=== PATIENT | male | born 1985 | race African-American/Black ===

== ENCOUNTER 2020-10-26 22:59 | Emergency (ER) | payer MEDICAID ==
[~2020-10-26] VITALS: Ht 177.8 cm; Wt 86.0 kg
[2020-10-26 23:25] VITALS: BP 127/80
== END 2020-10-27 00:14 | disposition home or self-care (01) ==
LOC: ER 22:59
DX: L03.115 Cellulitis of right lower limb (principal); L02.415 Cutaneous abscess of right lower limb
CPT/HCPCS: 87070; 87186; 99283

== ENCOUNTER 2021-08-22 23:05 | Emergency (ER) | payer MEDICAID ==
[~2021-08-22] VITALS: Ht 175.3 cm; Wt 89.0 kg
[2021-08-23] MEDS ORDERED: ACETAMINOPHEN 500MG TABLET PO STA (01:49)
[2021-08-23] MEDS ORDERED: METOCLOPRAMIDE HCL 10MG/2ML VIAL IV ONE (02:00)
[2021-08-23] MEDS ORDERED: SODIUM CHLORIDE 0.9% 1,000 ML IV ONE (02:00)
[2021-08-23] MEDS ORDERED: DIPHENHYDRAMINE 50MG/ML VIAL IV ONE (02:00)
[2021-08-23 02:12] LABS: HEMOGLOBIN. 13.5 g/dL (14.0-18.0); MEAN CORPUSCULAR HEMOGLOBIN 28.4 pg (28.0-32.0); MEAN CORPUSCULAR VOLUME 83.9 fL (80.0-94.0); PLATELET 161 x1000/uL (130-400); RED BLOOD CELL COUNT 4.77 mill/uL (4.7-6.1); RED CELL DISTRIBUTION WIDTH 14.4 % (11.6-14.6)
[2021-08-23 02:16] LABS: CHLORIDE 107 mEq/L (98-107)
[2021-08-23 03:29] VITALS: BP 136/85
[2021-08-23] MEDS ORDERED: KETOROLAC 15MG/ML VIAL IV ONE (03:30)
[2021-08-23 05:45] LABS: PLATELET ESTIMATE NORMAL
== END 2021-08-23 04:32 | disposition home or self-care (01) ==
LOC: ER 23:05
DX: R51.9 Headache, unspecified (principal); M54.2 Cervicalgia; M54.50 Low back pain, unspecified
CPT/HCPCS: 36415; 70450; 71045; 72125; 80053; 85025; 96361; 96374; 96375; 99285; J1200; J1885; J2765; J7030

== ENCOUNTER 2022-04-25 11:34 | Emergency (ER) | payer MEDICAID ==
[~2022-04-25] VITALS: Ht 177.8 cm; Wt 82.0 kg
[2022-04-25] MEDS ORDERED: IBUPROFEN 600MG TABLET PO ONE (16:30)
[2022-04-25] MEDS ORDERED: DICYCLOMINE HCL 10MG CAPSULE PO ONE (16:30)
[2022-04-25 16:43] LABS: HEMATOCRIT. 44.2 % (42.0-52.0); HEMOGLOBIN. 14.6 g/dL (14.0-18.0); MEAN CORPUSCULAR HEMOGLOBIN 27.8 pg (28.0-32.0); MEAN CORPUSCULAR VOLUME 83.8 fL (80.0-94.0); MEAN PLATELET VOLUME 9.6 fl (7.4-10.4); PLATELET 196 x1000/uL (130-400); RED BLOOD CELL COUNT 5.27 mill/uL (4.7-6.1); RED CELL DISTRIBUTION WIDTH 14.4 % (11.6-14.6)
[2022-04-25 16:46] LABS: CLARITY URINE CLEAR (CLEAR); COLOR URINE YELLOW (YELLOW); KETONES URINE NEGATIVE (NEGATIVE); LEUKOCYTE ESTERASE URINE NEGATIVE (NEGATIVE); NITRITE URINE NEGATIVE (NEGATIVE); OCCULT BLOOD URINE NEGATIVE (NEGATIVE); PROTEIN URINE 1+ (NEGATIVE); SPECIFIC GRAVITY URINE 1.022 (1.005-1.030)
[2022-04-25 16:47] LABS: CHLORIDE 102 mEq/L (98-107)
[2022-04-25] MEDS ORDERED: DICY10CA88 MT (18:37)
[2022-04-25 18:40] LABS: PLATELET ESTIMATE NORMAL
[2022-04-25 19:10] VITALS: BP 136/88
== END 2022-04-25 19:11 | disposition home or self-care (01) ==
LOC: ER 11:34
DX: R10.30 Lower abdominal pain, unspecified (principal)
CPT/HCPCS: 36415; 80053; 81003; 85025; 99283